=== PATIENT | male | born 1965 | race Caucasian/White ===

== ENCOUNTER → 2016-05-30 | Outpatient (CLI) | payer BC ==
[~2016-05-30] VITALS: Ht 170.2 cm; Wt 119.0 kg
[2016-05-30 14:40] VITALS: BP 159/104; PULSE 78; Ht 170.2 cm; Wt 119.0 kg
== END | disposition home or self-care (01) ==
LOC: C.NEUR 14:15
PROVIDERS: ATTEND Physician Assistant
DX: G47.30 Sleep apnea, unspecified (principal); J45.909 Unspecified asthma, uncomplicated

== ENCOUNTER → 2016-07-28 | Outpatient (CLI) | payer BC ==
[2016-07-28 14:03] LABS: ALT/SGPT 62 U/L (12-78); BLOOD UREA NITROGEN 16 mg/dl (7-18); BUN/CREATININE RATIO 14.5 (10-20); CARBON DIOXIDE 26 mmol/L (21-32); CHLORIDE 104 mmol/L (98-107); CHOLESTEROL 145 mg/dl (0-200); GLUCOSE 98 mg/dl (70-99); SODIUM 140 mmol/L (136-145); TRIGLYCERIDES 203 mg/dl (0-150); VERY LOW DENSITY LIPOPROT CALC 41 mg/dl
[2016-07-28 14:06] LABS: HDL CHOLESTEROL 29 mg/dl; LDL CHOLESTEROL CALCULATED 75 mg/dl
[2016-07-28 14:58] LABS: CALCIUM 9.4 mg/dl (8.5-10.1)
== END | disposition home or self-care (01) ==
LOC: C.LABBC 09:38
PROVIDERS: ATTEND Family Medicine
DX: R74.0 Nonspecific elevation of levels of transaminase and lactic acid dehydrogenase [LDH] (principal); E78.5 Hyperlipidemia, unspecified

== ENCOUNTER → 2017-02-01 | Outpatient (CLI) | payer BC ==
[2017-02-01 14:18] LABS: BASO % 0.4 %; BASO ABS # 0.06 K/uL (0-0.2); COMPLETE YES; EOS % 2.4 %; HEMATOCRIT 45.4 % (42-52); IG% 0.5 %; LYMPH % 13.9 %; LYMPH ABS # 1.87 K/uL (1.2-3.4); MEAN CORPUSCULAR HEMOGLOBIN 30.3 pg (25-34); MEAN CORPUSCULAR HGB CONC 34.8 g/dl (32-36); MEAN PLATELET VOLUME 8.9 fL (7.4-10.4); NEUT % 71.8 %; PLATELET COUNT 253 K/uL (130-400); RED BLOOD COUNT 5.22 M/uL (4.7-6.1)
[2017-02-01 14:30] LABS: MANUAL MICROSCOPIC REQUIRED? NO; REVIEW REQ? NO; URINE APPEARANCE CLEAR (CLEAR); URINE BILIRUBIN NEG (NEG); URINE COLOR YELLOW; URINE NITRITE NEG (NEG); URINE PH 6.5 (4.5-7.5); URINE SPECIFIC GRAVITY 1.017 (1.000-1.030); UROBILINOGEN NEG (NEG)
[2017-02-01 14:46] LABS: ALT/SGPT 39 U/L (12-78); AST/SGOT 18 U/L (15-37); BLOOD UREA NITROGEN 15 mg/dl (7-18); BUN/CREATININE RATIO 13.5 (10-20); CALCIUM 8.8 mg/dl (8.5-10.1); CARBON DIOXIDE 27 mmol/L (21-32); CHLORIDE 104 mmol/L (98-107); CREATININE 1.14 mg/dl (0.60-1.40); GLUCOSE 101 mg/dl (70-99); POTASSIUM 4.2 mmol/L (3.5-5.1); SODIUM 137 mmol/L (136-145)
[2017-02-01 14:57] LABS: ALB/GLOB RATIO 0.9 (0.9-2); ALKALINE PHOSPHATASE 73 U/L (45-117); CHOLESTEROL 122 mg/dl (0-200); CHOLESTEROL/HDL RATIO 3.4; HDL CHOLESTEROL 36 mg/dl; LDL CHOLESTEROL CALCULATED 68 mg/dl; THYROID STIMULATING HORMONE 0.919 uIu/ml (0.300-4.500); TRIGLYCERIDES 91 mg/dl (0-150); VERY LOW DENSITY LIPOPROT CALC 18 mg/dl
[2017-02-01 15:03] LABS: LYME DISEASE AB IGG NEG (NEG); LYME DISEASE AB IGM NEG (NEG)
== END | disposition home or self-care (01) ==
LOC: C.LABBC 10:01
PROVIDERS: ATTEND Nurse Practitioner Adult Health
DX: R30.0 Dysuria (principal); E78.5 Hyperlipidemia, unspecified; I10 Essential (primary) hypertension; Z87.898 Personal history of other specified conditions; R53.83 Other fatigue

== ENCOUNTER → 2017-04-17 | Outpatient (CLI) | payer OTHER ==
--- NOTE | 2017-04-17 12:57 | DIAGNOSTIC IMAGING REPORT ---
ULTRASOUND KIDNEYS AND BLADDER CLINICAL HISTORY: Prostatitis. Dysuria. COMPARISON STUDY: Right upper quadrant ultrasound dated 02/08/2012. TECHNIQUE: Real-time, grayscale, and color flow sonography of the kidneys and bladder is performed. Images are reviewed in the transverse and longitudinal planes. FINDINGS: Kidneys: The kidneys are normal in size and echotexture. The right kidney measures 12.0 cm in length and the left kidney measures 13.0 cm in length. There is no hydronephrosis. No shadowing renal calculi are identified. There is no sonographic evidence of contour deforming renal mass lesion. No perinephric fluid is identified. Bladder: The bladder is normal in appearance. Bilateral ureteral jets were seen. The post residual volume measures 34 cc. IMPRESSION: Unremarkable sonographic assessment of the kidneys and bladder. Electronically signed by: Chemo Strauss M.D. 04/17/2017 12:56 PM Dictated Date/Time: 04/17/2017 12:55 PM
== END | disposition home or self-care (01) ==
LOC: C.ULTR 11:40
PROVIDERS: ATTEND Family Medicine
DX: N41.9 Inflammatory disease of prostate, unspecified (principal); R39.9 Unspecified symptoms and signs involving the genitourinary system

== ENCOUNTER → 2017-10-11 | Day surgery (SDC) | payer BC, OTHER ==
[2017-10-04 14:14] VITALS: Ht 170.2 cm; Wt 115.9 kg
[~2017-10-11] VITALS: Ht 170.2 cm; Wt 115.9 kg
[~2017-10-11] MED LIST: ATOR10TA82 PO; BUSP15TA70 PO; BUSP5TAB59 PO; CZR25 PO; FIBETAB2 PO; LIDOCAINE HCL 2% 2 ML VIAL (20MG/ML) ONE; MULT-506 PO; OMEG10007 PO; OMEP40CA41 PO; PROPOFOL IV EMULSION 10 MG/ML 20 ML VIAL ONE; SERT50TA PO; SODIUM CHLORIDE 0.9% 500ML 500 ML IV ONE; TRIA1SPR4 NAE
--- NOTE | 2017-10-11 11:03 | Endo History and Physical ---
History & Physical Date of Service: Oct 11, 2017. Chief Complaint: screening Referring Physician: Dr. Lay History of Present Illness 52 yo CM who presents for screening colonoscopy. Past Surgical History Hx Cardiac Surgery: No Hx Internal Defibrillator: No Hx Pacemaker: No Hx Abdominal Surgery: Yes (HIATAL HERNIA REPAIR) Hx of Implantable Prosthesis: No Hx Post-Op Nausea and Vomiting: No Hx Cancer Surgery: No Hx Thoracic Surgery: No Hx Orthopedic: No Hx Urinary Tract Surgery: No Family History None Social History Smoking Status: Never Smoker Hx Substance Use: No Hx Alcohol Use: Yes (OCCASIONALLY) Allergies Coded Allergies: Erythromycin (Verified Allergy, Unknown, RASH, 10/11/17) Penicillins (Verified Allergy, Unknown, ANAPHYLAXIS, 10/11/17) Sulfa Antibiotics (Verified Allergy, Unknown, ANAPHYLAXIS, 10/11/17) Current Medications Reported Home Medications Medications Dose Route/Sig Max Daily Dose Days Date Category Lipitor (Atorvastatin Calcium) 10 Mg Tab 10 Mg PO HS 10/04/17 Reported Fiber Diet (Fiber) 1 Tab Tab 1 Tab PO DAILY 10/04/17 Reported Multivitamin (Multivitamins) Tab 1 Tab PO DAILY 10/04/17 Reported [place]-3 (Fish Oil) 1 Ea Cap 1 Cap PO DAILY 10/04/17 Reported Prilosec (Omeprazole) 40 Mg Cap 40 Mg PO QAM 10/04/17 Reported Nasacort Allergy 24Hr (Triamcinolone Acetonide (Nasal) 55 Mcg/Act Spr 1 [place] LESA QAM 10/04/17 Reported Losartan Potassium 25 Mg Tab 1 Tab PO QAM 10/04/17 Reported Buspirone Hcl 5 Mg Tab 1 Tab PO BID 10/04/17 Reported Buspar (Buspirone Hcl) 15 Mg Tab 15 Mg PO BID 10/04/17 Reported Zoloft (Sertraline Hcl) 50 Mg Tab 50 Mg PO QPM 10/04/17 Reported Vital Signs Weight (Kilograms): 115.91 Height (Feet): 5 Height (Inches): 7 Date Time Temp Pulse Resp B/P (MAP) Pulse Ox O2 Delivery O2 Flow Rate FiO2 10/11/17 10:59 37.2 93 18 151/91 (111) 96 Room Air Physical Exam General Appearance: WD/WN, no apparent distress Respiratory/Chest: Auscultation: breath sounds normal Cardiovascular: Heart Auscultation: RRR Abdomen: Bowel Sounds: normal Inspection & Palpation: soft, non-distended, no tenderness, guarding & rebound Assessment and Plan Assessment: 52 yo CM who presents for screening colonoscopy. Plan: Proceed with colonoscopy.
--- NOTE | 2017-10-11 12:16 | Discharge Instructions ---
Endoscopy Patient Instructions Date / Procedure(s) Performed Oct 11, 2017. Colonoscopy Allergy Information Coded Allergies: Erythromycin (Verified Allergy, Unknown, RASH, 10/11/17) Penicillins (Verified Allergy, Unknown, ANAPHYLAXIS, 10/11/17) Sulfa Antibiotics (Verified Allergy, Unknown, ANAPHYLAXIS, 10/11/17) Discharge Date / Findings Oct 11, 2017. Internal hemorrhoids Medication Instructions OK to resume all medications today as prescribed Reported Home Medications Medications Dose Route/Sig Max Daily Dose Days Date Category Lipitor (Atorvastatin Calcium) 10 Mg Tab 10 Mg PO HS 10/04/17 Reported Fiber Diet (Fiber) 1 Tab Tab 1 Tab PO DAILY 10/04/17 Reported Multivitamin (Multivitamins) Tab 1 Tab PO DAILY 10/04/17 Reported [place]-3 (Fish Oil) 1 Ea Cap 1 Cap PO DAILY 10/04/17 Reported Prilosec (Omeprazole) 40 Mg Cap 40 Mg PO QAM 10/04/17 Reported Nasacort Allergy 24Hr (Triamcinolone Acetonide (Nasal) 55 Mcg/Act Spr 1 [place] LESA QAM 10/04/17 Reported Losartan Potassium 25 Mg Tab 1 Tab PO QAM 10/04/17 Reported Buspirone Hcl 5 Mg Tab 1 Tab PO BID 10/04/17 Reported Buspar (Buspirone Hcl) 15 Mg Tab 15 Mg PO BID 10/04/17 Reported Zoloft (Sertraline Hcl) 50 Mg Tab 50 Mg PO QPM 10/04/17 Reported Provider Instructions Activity Restrictions - No exercising or heavy lifting for 24 hours. - Do not drink alcohol the day of the procedure. - Do not drive a car or operate machinery until the day after the procedure. - Do not make any important decisions or sign important papers in 24 hours after the procedure. Following Day: - Return to full activity which may include returning to work/school. Diet Start your diet with liquids and light foods (jello, soup, juice, toast). Then eat your usual diet if not nauseated. Treatment For Common After Affects For mild abdominal pain, bloating, or excessive gas: - Rest - Eat lightly - Lie on right side Follow-Up Information Follow-up with Dr. Lay as scheduled Anesthesia Information What You Should Know You have had a procedure that required some medicine to reduce anxiety and discomfort. This treatment is called moderate sedation. After receiving the treatment, you may be sleepy, but you will be able to breathe on your own. The effects of the treatment may last for several hours. Follow these instructions along with Activity/Diet recommendations noted above: * Do NOT do anything where dizziness or clumsiness would be dangerous. * Rest quietly at home today, then you can be up and about tomorrow. * Have a responsible person stay with you the rest of today. * You may have had an I.V. today. If so, you may take the dressing off later today. Recommendations Call your doctor if: * Trouble breathing * Continuous vomiting for more than 24 hours * Temperature above 101 degrees * Severe abdominal pain or bloating * Pain not relieved by pain medicine ordered * There is increased drainage or redness from any incision * A large amount of rectal bleeding greater than 2-3 tablespoons. (If you had a polyp/s removed or have hemorrhoids, a small amount of blood - from the rectum is to be expected.) * You have any unanswered questions or concerns. IN THE EVENT OF A SERIOUS EMERGENCY, GO TO THE NEAREST EMERGENCY ROOM Your discharge instructions were prepared by provider Raheem Amato. Patient Instructions Signature Page Anupam Maki Patient (or Guardian) Signature/Date: I have read and understand the instructions given to me by my caregivers. Caregiver/RN/Doctor Signature/Date: The above-named patient and/or guardian has received patient instructions on this date. + Original Patient Signature Page (only) stays with chart. Please make copy for patient.
--- NOTE | 2017-10-11 12:23 | GI REPORT ---
Patient Name: Anupam Maki Procedure Date: 10/11/2017 11:32 AM Date of : 1965 Admit Type: Outpatient Age: 52 Gender: Male Attending MD: Raheem Amato DO Procedure: Colonoscopy Providers: Raheem Amato DO Referring MD: Daysi Barone Md Indications: Screening for colorectal malignant neoplasm Medicines: Monitored Anesthesia Care Complications: No immediate complications. Estimated Blood Loss: Estimated blood loss: none. Procedure: Pre-Anesthesia Assessment: - Prior to the procedure, a History and Physical was performed, and patient medications and allergies were reviewed. The patient's tolerance of previous anesthesia was also reviewed. The risks and benefits of the procedure and the sedation options and risks were discussed with the patient. All questions were answered, and informed consent was obtained. Prior Anticoagulants: The patient has taken no previous anticoagulant or antiplatelet agents. ASA Grade Assessment: II - A patient with mild systemic disease. After reviewing the risks and benefits, the patient was deemed in satisfactory condition to undergo the procedure. After I obtained informed consent, the scope was passed under direct vision. Throughout the procedure, the patient's blood pressure, pulse, and oxygen saturations were monitored continuously. The scope was introduced through the anus and advanced to the terminal ileum. The colonoscopy was performed without difficulty. The patient tolerated the procedure well. The quality of the bowel preparation was good. The terminal ileum, ileocecal valve, appendiceal orifice, and rectum were photographed. Findings: The perianal and digital rectal examinations were normal. Non-bleeding internal hemorrhoids were found during retroflexion. The hemorrhoids were small. Impression: - Non-bleeding internal hemorrhoids. - No specimens collected. Recommendation: - Resume previous diet. - Continue present medications. - Repeat colonoscopy in 10 years for surveillance. - Return to primary care physician as previously scheduled. Raheem Amato DO 10/11/2017 12:22:26 PM This report has been signed electronically. Note Initiated On: 10/11/2017 11:32 AM Number of Addenda: 0 I attest to the content of the Intraoperative Record and orders documented therein, exceptions below {[id number]}
[2017-10-11 12:39] VITALS: BP 149/97; PULSE 80; O2SAT 96
--- NOTE | 2017-10-11 12:48 | Anesthesiology Progress Note ---
Anesthesia Post Op Note Date & Time Oct 11, 2017 at 12:47 Vital Signs Pain Intensity: 0 Vital Signs Past 12 Hours Date Time Temp Pulse Resp B/P (MAP) Pulse Ox O2 Delivery O2 Flow Rate FiO2 10/11/17 12:39 80 18 149/97 (114) 96 Room Air 10/11/17 12:24 80 18 154/100 (118) 96 Room Air 10/11/17 12:19 88 16 142/77 (98) 95 Room Air 10/11/17 10:59 37.2 93 18 151/91 (111) 96 Room Air Notes Mental Status: alert / awake / arousable, participated in evaluation Pt Amnestic to Procedure: Yes Nausea / Vomiting: adequately controlled Pain: adequately controlled Airway Patency, RR, SpO2: stable & adequate BP & HR: stable & adequate Hydration State: stable & adequate Anesthetic Complications: no major complications apparent
== END | disposition home or self-care (01) ==
LOC: C.GI 10:04
PROVIDERS: ATTEND Internal Medicine
DX: Z12.11 Encounter for screening for malignant neoplasm of colon (principal); K64.8 Other hemorrhoids; I10 Essential (primary) hypertension; Z88.0 Allergy status to penicillin; Z88.2 Allergy status to sulfonamides; Z88.1 Allergy status to other antibiotic agents